=== PATIENT | female | born 1990 | race Asian ===

== ENCOUNTER 2018-07-17 19:20 | Emergency (ER) | payer OTHER ==
[~2018-07-17] VITALS: Ht 165.1 cm; Wt 66.2 kg
[2018-07-17 19:30] VITALS: BP 116/53
--- NOTE | 2018-07-17 20:28 | NUR ---
PATIENT AMB TO BED 4
--- NOTE | 2018-07-17 20:30 | NUR ---
C/O 5/10 BURNING EPIGASTRIC TO SUPRAPUBIC PAIN AND BLOATING X2 MONTHS. REPORTS NOTICING A PALPABLE MASS ON RUQ TODAY. REPORTS BRIGHT RED BLOOD IN STOOL. DENIES FEVER, N/V/D, CONSTIPATION OR DYSURIA. WENT TO URGENT CARE 3 DAYS AGO, WAS GIVEN RX BACTRIM WITHOUT RELIEF DENIES MED HX.
[2018-07-17 21:24] LABS: BASOPHILS % (AUTO) 0.3 % (0.0-2.0); EOSINOPHILS % (AUTO) 0.4 % (0.0-4.0); HEMATOCRIT 41.8 % (36-48); HEMOGLOBIN 14.3 g/dL (12.0-16.0); LYMPHOCYTES # (AUTO) 1.6 K/uL (2.5-16.5); LYMPHOCYTES % (AUTO) 22.6 % (20.5-51.1); MEAN CORPUSCULAR HEMOGLOBIN 32 pg (27-31); MEAN CORPUSCULAR HGB CONC 34 g/dL (33-37); MEAN CORPUSCULAR VOLUME 93.6 fL (80-94); MONOCYTES # (AUTO) 0.5 K/uL (0.8-1.0); MONOCYTES % (AUTO) 7.9 % (1.7-9.3); NEUTROPHILS # (AUTO) 4.7 K/uL (1.8-7.7); NEUTROPHILS % (AUTO) 68.8 % (42.2-75.2); PLATELET COUNT (AUTO) 230 K/uL (140-450); RED BLOOD CELL COUNT(AUTO) 4.46 MIL/uL (4.20-5.40); RED CELL DISTRIBUTION WIDTH 12.7 % (11.6-13.7); WHITE BLOOD COUNT (AUTO) 6.9 K/uL (4.8-10.8)
[2018-07-17 21:35] LABS: ANION GAP 14.4 (8-16); CARBON DIOXIDE 25.5 mmol/L (21-32); CREATININE 1.1 mg/dL (0.6-1.3); POTASSIUM 3.9 mmol/L (3.5-5.1)
[2018-07-17 21:41] LABS: ALBUMIN 4.5 g/dL (3.4-5.0); BILIRUBIN,DIRECT 0.1 mg/dL (0.0-0.3); TOTAL BILIRUBIN 0.4 mg/dL (0.0-1.0)
--- NOTE | 2018-07-17 21:46 | NUR ---
patient taken in wheelchair to ct
--- NOTE | 2018-07-17 23:00 | NUR ---
NO NEW NEEDS STATED AT THIS TIME.
[2018-07-18 00:40] VITALS: BP 116/53
--- NOTE | 2018-07-18 00:41 | NUR ---
Patient discharged with v/s stable. Written and verbal after care instructions given and explained. Patient alert, oriented and verbalized understanding of instructions. Ambulatory with steady gait. All questions addressed prior to discharge. ID band removed. Patient advised to follow up with PMD. Rx of ALEISHA BALDWIN given. Patient educated on indication of medication including possible reaction and side effects. Opportunity to ask questions provided and answered.
== END 2018-07-18 00:40 | disposition home or self-care (01) ==
LOC: MED 19:20
DX: N83.201 Unspecified ovarian cyst, right side (principal)
CPT/HCPCS: 36415; 74176; 76856; 80053; 80076; 81025; 83690; 85025; 93976; 99284; Q0092; 81002